=== PATIENT | female | born 1975 | race Caucasian/White ===

== ENCOUNTER 2020-08-04 13:51 | Emergency (ER) | payer BC | END 2020-08-04 14:37 | disposition home or self-care (01) | LOC: JVIRT 13:51 | DX: Z11.59 Encounter for screening for other viral diseases (principal) | CPT/HCPCS: C9803; G2012-GT; U0003 ==

== ENCOUNTER 2020-08-31 10:20 | Emergency (ER) | payer BC | END 2020-08-31 12:45 | disposition home or self-care (01) | LOC: JVIRT 10:20 | DX: Z20.822 Contact with and (suspected) exposure to COVID-19 (principal) | CPT/HCPCS: C9803; Q3014-GT; U0003 ==